=== PATIENT | female | born 1945 | race Caucasian/White ===

== ENCOUNTER 2017-09-24 06:20 | Day surgery (SDC) | payer OTHER ==
[~2017-09-24 06:20] MED LIST: ATORVASTATIN CA20 MG PO; COZAAR25 MG PO; DOXYCYCLINE MO100 M1 PO
== END 2017-09-24 11:40 | disposition home or self-care (01) ==
LOC: AMB-ENDOS 06:20
DX: D12.2 Benign neoplasm of ascending colon (principal); K64.0 First degree hemorrhoids